=== PATIENT | female | born 1965 | race Caucasian/White ===

== ENCOUNTER 2016-12-17 16:04 | Emergency (ER) | payer SELFPAY ==
[~2016-12-17] VITALS: Ht 149.9 cm; Wt 59.0 kg
[2016-12-17 16:26] VITALS: BP 126/90
== END 2016-12-17 17:40 | disposition home or self-care (01) ==
LOC: ER 16:13
DX: S91.342A Puncture wound with foreign body, left foot, initial encounter (principal); F17.210 Nicotine dependence, cigarettes, uncomplicated; W22.8XXA Striking against or struck by other objects, initial encounter; Y93.89 Activity, other specified; Y92.89 Other specified places as the place of occurrence of the external cause; Y99.8 Other external cause status
CPT/HCPCS: 10120; 73630